=== PATIENT | female | born 1945 | race Two or more races ===

== ENCOUNTER 2018-05-11 17:59 | Emergency (ER) | payer OTHER, MEDICAID ==
[~2018-05-11] VITALS: Ht 157.5 cm; Wt 67.1 kg
[~2018-05-11 17:59] MED LIST: ASPIR 8181 MG PO; METFORMIN HCL750 MG PO; REG10 PO; ZOCOR20 MG PO
[2018-05-11 18:10] VITALS: Ht 157.5 cm; Wt 67.1 kg
[2018-05-11 19:55] VITALS: BP 159/90
== END 2018-05-11 19:55 | disposition home or self-care (01) ==
LOC: ED 17:59
DX: L03.115 Cellulitis of right lower limb (principal); E11.9 Type 2 diabetes mellitus without complications
CPT/HCPCS: Q0163

== ENCOUNTER 2019-01-19 15:50 | Emergency (ER) | payer OTHER, BC ==
[~2019-01-19] VITALS: Ht 160 cm; Wt 66.7 kg
[2019-01-19 15:57] VITALS: Ht 160 cm; Wt 66.7 kg
[2019-01-19 19:38] LABS: BASOPHIL % 0.3 % (0-2); PLATELET COUNT 217 x10^3mcL (130-400); RED CELL DISTRIBUTION WIDTH 13.3 % (11.5-14.5)
[2019-01-19 19:51] LABS: CALCIUM 9.4 mg/dL (8.5-10.1); CARBON DIOXIDE 30.5 mmol/L (21-32); CHLORIDE SERUM 102 mmol/L (98-107); CREATININE SERUM 1.1 mg/dL (0.6-1.0); GLUCOSE SERUM 132 mg/dL (74-106); POTASSIUM SERUM 3.7 mmol/L (3.5-5.1); SODIUM SERUM 138 mmol/L (136-145)
[2019-01-19 20:01] LABS: ALBUMIN 4.1 g/dL (3.4-5.0); ALKALINE PHOSPHATASE 61 U/L (46-116); ALT/SGPT 21 U/L (14-59); AST/SGOT 15 U/L (15-37); BILIRUBIN TOTAL 0.47 mg/dL (0.20-1.00); LIPASE 192 IU/L (73-393); TOTAL PROTEIN, SERUM 8.6 g/dL (6.4-8.2)
[2019-01-19 20:08] LABS: UA SPECIFIC GRAVITY >=1.030 (1.005-1.035); microscopic required? YES; urine erythrocyte 2+ (NEGATIVE)
[2019-01-19 20:57] VITALS: BP 106/61
== END 2019-01-19 20:57 | disposition home or self-care (01) ==
LOC: ED 15:50
PROVIDERS: Emergency Medicine
DX: B34.9 Viral infection, unspecified (principal); N39.0 Urinary tract infection, site not specified; E11.9 Type 2 diabetes mellitus without complications
CPT/HCPCS: 36415; 83880; 87804

== ENCOUNTER 2019-01-27 17:12 | Emergency (ER) | payer OTHER, BC | END 2019-01-27 23:05 | disposition home or self-care (01) | LOC: ED 17:12 ==

== ENCOUNTER 2019-12-11 09:14 | Emergency (ER) | payer OTHER, BC ==
[~2019-12-11] VITALS: Ht 157.5 cm; Wt 67.1 kg
[2019-12-11 09:20] VITALS: BP 190/97; Ht 157.5 cm; Wt 67.1 kg
== END 2019-12-11 10:01 | disposition home or self-care (01) ==
LOC: ED 09:14
DX: J32.9 Chronic sinusitis, unspecified (principal); E11.9 Type 2 diabetes mellitus without complications; Z88.5 Allergy status to narcotic agent